=== PATIENT | female | born 1975 | race Caucasian/White ===

== ENCOUNTER → 2020-10-06 | Outpatient (REF) | payer BC ==
[2020-10-06 13:04] LABS: BASO # 0.1 10^3/uL (0.0-0.2); BASO % 1.1 % (0.0-1.0); EOS # 0.3 10^3/uL (0.0-0.5); EOS % 4.7 % (0.0-3.0); HEMOGLOBIN 12.5 g/dl (12.0-15.5); LYMPH # 2.8 10^3/uL (1.5-5.0); LYMPH % 39.8 % (24.0-44.0); MEAN CORPUSCULAR HEMOGLOBIN 27.5 pg (27.0-33.0); MEAN CORPUSCULAR HGB CONC 31.3 g/dl (32.0-36.5); MEAN CORPUSCULAR VOLUME 88.1 fl (80.0-96.0); MONO # 0.6 10^3/uL (0.0-0.8); MONO % 8.6 % (2.0-8.0); NEUTROPHILS # 3.1 10^3/uL (1.5-8.5); NEUTROPHILS % 45.1 % (36.0-66.0); PLATELET COUNT, AUTOMATED 271 10^3/uL (150-450); RED BLOOD COUNT 4.54 10^6/uL (4.00-5.40)
[2020-10-06 13:29] LABS: HEMOGLOBIN A1c 5.6 %
[2020-10-06 13:40] LABS: ALBUMIN 3.4 GM/DL (3.2-5.2); ALT/SGPT 22 U/L (12-78); BILIRUBIN,TOTAL 0.1 MG/DL (0.2-1.0); BLOOD UREA NITROGEN 17 MG/DL (7-18); CARBON DIOXIDE LEVEL 28 MEQ/L (21-32); CHLORIDE LEVEL 110 MEQ/L (98-107); CHOLESTEROL LEVEL 233 MG/DL (<200); CHOLESTEROL RISK RATIO 4.755 (<5); GLOMERULAR FILTRATION RATE > 60.0 (>58); GLUCOSE, FASTING 98 MG/DL (70-100); HDL CHOLESTEROL 49 MG/DL (>40); LDL CHOLESTEROL 133 MG/DL (<100); NON-HDL-C 184 MG/DL; POTASSIUM SERUM 4.4 MEQ/L (3.5-5.1); SODIUM LEVEL 142 MEQ/L (136-145); THYROID STIMULATING HORMONE 0.937 uIU/ML (0.358-3.740); TOTAL PROTEIN 6.5 GM/DL (6.4-8.2); TRIGLYCERIDES LEVEL 254 MG/DL (<150)
== END ==
LOC: M SFHCADAM 08:12
PROVIDERS: ATTEND Physician Assistant Medical
DX: E66.01 Morbid (severe) obesity due to excess calories (principal); F51.5 Nightmare disorder; F43.10 Post-traumatic stress disorder, unspecified; F33.41 Major depressive disorder, recurrent, in partial remission; E03.9 Hypothyroidism, unspecified; E28.2 Polycystic ovarian syndrome

== ENCOUNTER → 2021-03-05 | Outpatient (REF) | payer BC | LOC: M SFHCADAM 08:46 | PROVIDERS: ATTEND Physician Assistant Medical | DX: F33.41 Major depressive disorder, recurrent, in partial remission (principal) ==

== ENCOUNTER → 2021-04-01 | Outpatient (REF) | payer BC ==
[~2021-04-01] MED LIST: ATIV1TAB10 PO; AUGM875T28 PO; CYMB1CAP5 PO; GABA800T4 PO; HYDR1CAP25 PO; LIDO2SOL9 PO; PRAZ2CAP PO
[2021-04-01 16:26] LABS: AMORPHOUS SEDIMENT MODERATE (NEGATIVE); APPEARANCE, URINE TURBID (CLEAR); BACTERIA, URINE AUTO NEGATIVE (NEGATIVE); BILIRUBIN, URINE AUTO NEGATIVE (NEGATIVE); BLOOD, URINE BLOOD NEGATIVE (NEGATIVE); COLOR, URINE YELLOW (YELLOW); GLUCOSE, URINE (UA) AUTO NEGATIVE (NEGATIVE); KETONE, URINE AUTO TRACE mg/dL (NEGATIVE); LEUKOCYTE ESTERASE, URINE AUTO NEGATIVE (NEGATIVE); MUCUS, URINE LARGE (NEGATIVE); NITRITE, URINE AUTO NEGATIVE (NEGATIVE); PROTEIN, URINE AUTO 1+ mg/dL (NEGATIVE); RBC, URINE AUTO 0 /HPF (0-3); SQUAMOUS EPITHELIAL CELL UR AU 4 /HPF (0-6); UROBILINOGEN, URINE AUTO 0.2 mg/dL (0.0-2.0); WBC, URINE AUTO 0 /HPF (0-3)
== END ==
LOC: M LAB REF 15:55
PROVIDERS: ATTEND Physician Assistant
DX: N39.0 Urinary tract infection, site not specified (principal)

== ENCOUNTER 2021-04-10 11:38 | Emergency (ER) | payer BC, OTHER ==
[~2021-04-10] VITALS: Ht 165.1 cm; Wt 98.3 kg
[2021-04-10] MEDS ORDERED: PENI500T (11:46)
[2021-04-10] MEDS ORDERED: CLIN-250 (11:46)
[2021-04-10] MEDS ORDERED: PRAZ5CAP (11:46)
[2021-04-10] MEDS ORDERED: VENL150C43 (11:46)
[2021-04-10] MEDS ORDERED: TRAZ-252 (11:46)
[2021-04-10] MEDS ORDERED: LEVO50TA5 (11:46)
[2021-04-10] MEDS ORDERED: METF500T13 (11:46)
[2021-04-10] MEDS ORDERED: ACETAMINOPHEN 325 MG TAB PO ONE (14:15)
[2021-04-10 15:53] VITALS: BP 141/97
== END 2021-04-10 16:00 | disposition home or self-care (01) ==
LOC: M ED 11:38
DX: M65.332 Trigger finger, left middle finger (principal); S62.665A Nondisplaced fracture of distal phalanx of left ring finger, initial encounter for closed fracture; Y04.8XXA Assault by other bodily force, initial encounter; Y92.9 Unspecified place or not applicable; Y93.9 Activity, unspecified; Y99.0 Civilian activity done for income or pay; E03.9 Hypothyroidism, unspecified; F32.A Depression, unspecified; F41.9 Anxiety disorder, unspecified; E28.2 Polycystic ovarian syndrome; Z98.51 Tubal ligation status; Z79.899 Other long term (current) drug therapy

== ENCOUNTER → 2021-10-19 | Outpatient (CLI) | payer OTHER, BC ==
[~2021-10-19] MED LIST changes: +CLIN-250; +LEVO50TA5; +METF500T13; +PENI500T; +PRAZ5CAP; +TRAZ-252; +VENL150C43
== END ==
LOC: M ADAMS 14:13
PROVIDERS: ATTEND Physician Assistant Medical
DX: M79.671 Pain in right foot (principal)

== ENCOUNTER → 2022-04-21 | Outpatient (REF) | payer OTHER ==
[2022-04-21 13:50] LABS: BASO # 0.1 10^3/uL (0.0-0.2); BASO % 0.7 % (0.0-1.0); EOS # 0.4 10^3/uL (0.0-0.5); HEMATOCRIT 41.8 % (36.0-47.0); HEMOGLOBIN 13.1 g/dl (12.0-15.5); LYMPH # 2.6 10^3/uL (1.5-5.0); LYMPH % 36.6 % (24.0-44.0); MEAN CORPUSCULAR HEMOGLOBIN 28.1 pg (27.0-33.0); MEAN CORPUSCULAR HGB CONC 31.3 g/dl (32.0-36.5); MEAN CORPUSCULAR VOLUME 89.7 fl (80.0-96.0); MONO # 0.6 10^3/uL (0.0-0.8); MONO % 8.8 % (2.0-8.0); NEUTROPHILS # 3.4 10^3/uL (1.5-8.5); NEUTROPHILS % 48.3 % (36.0-66.0); PLATELET COUNT, AUTOMATED 259 10^3/uL (150-450); RED BLOOD COUNT 4.66 10^6/uL (4.00-5.40); WHITE BLOOD COUNT 7.1 10^3/uL (4.0-10.0)
[2022-04-21 14:05] LABS: ALBUMIN 3.6 G/DL (3.2-5.2); ALKALINE PHOSPHATASE 75 U/L (46-116); ALT/SGPT 17 U/L (7.0-40); AST/SGOT 13 U/L (<34); BILIRUBIN,TOTAL 0.5 MG/DL (0.3-1.2); BLOOD UREA NITROGEN 15 MG/DL (9-23); CALCIUM LEVEL 9.7 MG/DL (8.5-10.1); CARBON DIOXIDE LEVEL 28 MMOL/L (20-31); CHLORIDE LEVEL 102 MMOL/L (98-107); CHOLESTEROL LEVEL 228 MG/DL (<200); CHOLESTEROL RISK RATIO 3.08 (<5); CREATININE FOR GFR 0.76 MG/DL (0.55-1.30); GLOMERULAR FILTRATION RATE > 60.0 (>58); GLUCOSE, FASTING 103 MG/DL (60-100); HDL CHOLESTEROL 73.9 MG/DL (>40); LDL CHOLESTEROL 132.1 MG/DL (<100); NON-HDL-C 154 MG/DL; POTASSIUM SERUM 4.5 MMOL/L (3.5-5.1); SODIUM LEVEL 138 MMOL/L (136-145); TOTAL PROTEIN 6.9 G/DL (5.7-8.2); TRIGLYCERIDES LEVEL 110 MG/DL (<150)
[2022-04-21 14:08] LABS: THYROID STIMULATING HORMONE 1.394 uIU/ML (0.55-4.78); TOTAL 25(OH) VITAMIN D 16.2 NG/ML (20.0-100.0)
[2022-04-21 14:22] LABS: HEMOGLOBIN A1c 4.9 % (4.0-6.0)
== END ==
LOC: M SFHCADAM 08:09
PROVIDERS: ATTEND Physician Assistant Medical
DX: E03.9 Hypothyroidism, unspecified (principal); E66.01 Morbid (severe) obesity due to excess calories; F33.41 Major depressive disorder, recurrent, in partial remission; E28.2 Polycystic ovarian syndrome; E55.9 Vitamin D deficiency, unspecified

== ENCOUNTER → 2022-09-27 | Outpatient (REF) | payer OTHER ==
[~2022-09-27] MED LIST changes: +LIDO2SOBTL PO; -LIDO2SOL9 PO
== END ==
LOC: M SFHCADAM 09:30
PROVIDERS: ATTEND Physician Assistant Medical
DX: E55.9 Vitamin D deficiency, unspecified (principal)

== ENCOUNTER 2024-12-26 07:50 | Day surgery (SDC) | payer OTHER ==
[~2024-12-26] VITALS: Ht 165.1 cm; Wt 102.1 kg
[~2024-12-26 07:50] MED LIST changes: +CHLO125TA PO; +ERGO500029 PO; +GABA-1635 PO; -GABA800T4 PO; -LEVO50TA5; +LEVO50TA5 PO; +LIDO100S29 PO; -LIDO2SOBTL PO; -METF500T13; +METF500T13 PO; +VENL75CA47 PO
[2024-12-26] MEDS ORDERED: LIDOCAINE 2% INJ 100 MG/5 ML SYRINGE As Ordered ONE (09:48)
[2024-12-26 10:20] VITALS: TEMP 98.6
[2024-12-26 10:50] VITALS: BP 154/88; O2SAT 97
== END 2024-12-26 11:07 | disposition home or self-care (01) ==
LOC: M OPP 07:50
PROVIDERS: ATTEND Surgery
DX: Z12.11 Encounter for screening for malignant neoplasm of colon (principal); K63.5 Polyp of colon; K64.8 Other hemorrhoids; K30 Functional dyspepsia; Z88.8 Allergy status to other drugs, medicaments and biological substances; Z79.84 Long term (current) use of oral hypoglycemic drugs; Z79.899 Other long term (current) drug therapy

== ENCOUNTER → 2025-01-01 | Outpatient (REF) | payer OTHER ==
[2025-01-01 14:39] LABS: CALCIUM LEVEL 9.3 MG/DL (8.5-10.1); CARBON DIOXIDE LEVEL 31.0 MMOL/L (20-31); CHLORIDE LEVEL 102.0 MMOL/L (98-107); CREATININE FOR GFR 0.84 MG/DL (0.55-1.30); GLOMERULAR FILTRATION RATE 84.1 (>51); POTASSIUM SERUM 3.7 MMOL/L (3.5-5.1); SODIUM LEVEL 142.0 MMOL/L (136-145)
== END ==
LOC: M SFHCADAM 10:34
PROVIDERS: ATTEND Physician Assistant Medical
DX: R60.0 Localized edema (principal)

== ENCOUNTER → 2025-01-22 | Outpatient (CLI) | payer OTHER | LOC: M ADAMS 08:48 | PROVIDERS: ATTEND Physician Assistant Medical | DX: M51.360 Other intervertebral disc degeneration, lumbar region with discogenic back pain only (principal) ==

== ENCOUNTER → 2025-01-22 | Outpatient (REF) | payer OTHER ==
[2025-01-22 13:03] LABS: BASO # 0.1 10^3/uL (0.0-0.2); BASO % 0.7 % (0.0-1.0); EOS # 0.3 10^3/uL (0.0-0.5); EOS % 3.3 % (0.0-3.0); LYMPH # 3.0 10^3/uL (1.5-5.0); LYMPH % 30.4 % (24.0-44.0); MONO # 1.0 10^3/uL (0.0-0.8); MONO % 9.5 % (2.0-8.0); NEUTROPHILS # 5.5 10^3/uL (1.5-8.5); NEUTROPHILS % 55.0 % (36.0-66.0); PLATELET COUNT, AUTOMATED 249 10^3/uL (150-450)
[2025-01-22 13:05] LABS: APPEARANCE, URINE CLEAR (CLEAR); BACTERIA, URINE AUTO NEGATIVE (NEGATIVE); BILIRUBIN, URINE AUTO NEGATIVE (NEGATIVE); BLOOD, URINE BLOOD NEGATIVE (NEGATIVE); CALCIUM LEVEL 9.1 MG/DL (8.5-10.1); CARBON DIOXIDE LEVEL 31.0 MMOL/L (20-31); CHLORIDE LEVEL 102.0 MMOL/L (98-107); CREATININE FOR GFR 0.84 MG/DL (0.55-1.30); GLOMERULAR FILTRATION RATE 84.1 (>51); GLUCOSE, URINE (UA) AUTO NEGATIVE (NEGATIVE); KETONE, URINE AUTO NEGATIVE (NEGATIVE); LEUKOCYTE ESTERASE, URINE AUTO NEGATIVE (NEGATIVE); MUCUS, URINE SMALL (NEGATIVE); NITRITE, URINE AUTO NEGATIVE (NEGATIVE); POTASSIUM SERUM 3.3 MMOL/L (3.5-5.1); PROTEIN, URINE AUTO NEGATIVE (NEGATIVE); RBC, URINE AUTO 1 /HPF (0-3); SODIUM LEVEL 141.0 MMOL/L (136-145); SPECIFIC GRAVITY URINE AUTO 1.021 (1.002-1.035); SQUAMOUS EPITHELIAL CELL UR AU 4 /HPF (0-6); UROBILINOGEN, URINE AUTO 0.2 mg/dL (0.0-2.0); WBC, URINE AUTO 0 /HPF (0-3)
[2025-01-22 13:07] LABS: INR 0.86; THYROID PEROXIDASE ANTIBODY 58.0 U/ML (<60.0); VITAMIN B12 LEVEL 381.0 PG/ML (211-911)
== END ==
LOC: M SFHCADAM 08:17
PROVIDERS: ATTEND Physician Assistant Medical
DX: I10 Essential (primary) hypertension (principal); R58 Hemorrhage, not elsewhere classified; R53.82 Chronic fatigue, unspecified; M54.50 Low back pain, unspecified; R82.998 Other abnormal findings in urine